=== PATIENT | female | born 2000 | race Caucasian/White ===

== ENCOUNTER → 2020-11-23 | Day surgery (SDC) | payer OTHER ==
[~2020-11-23] MED LIST: CELEBREX100 MG PO; HIGH POTENCY I134 MG PO; MAXALT10 MG PO; PROTONIX 40 MG40 M1 PO; TOPAMAX25 MG PO
[2020-11-24 15:14] LABS: ENDOMYSIAL ANTIBODY IGA Negative (Negative); IMMUNOGLOBULIN A, QN, SERUM 178 mg/dL (87-352); T-TRANSGLUTAMINASE (TTG) IGA <2 U/mL (0-3)
== END | disposition home or self-care (01) ==
LOC: OR 07:11
PROVIDERS: Internal Medicine Gastroenterology
DX: D50.9 Iron deficiency anemia, unspecified (principal); K29.80 Duodenitis without bleeding; K21.00 Gastro-esophageal reflux disease with esophagitis, without bleeding; F31.9 Bipolar disorder, unspecified; E66.01 Morbid (severe) obesity due to excess calories; F41.9 Anxiety disorder, unspecified; G43.909 Migraine, unspecified, not intractable, without status migrainosus; F17.290 Nicotine dependence, other tobacco product, uncomplicated; Z68.43 Body mass index [BMI] 50.0-59.9, adult; Z79.899 Other long term (current) drug therapy
CPT/HCPCS: 36415; 82784; 84703; J2001; J2704; J7040

== ENCOUNTER → 2021-01-09 | Outpatient (CLI) | payer OTHER | LOC: RAD 11:56 | DX: S61.452A Open bite of left hand, initial encounter (principal); W54.0XXA Bitten by dog, initial encounter | CPT/HCPCS: 73130 ==